=== PATIENT | male | born 1975 | race Caucasian/White ===

== ENCOUNTER → 2016-10-03 | Outpatient (CLI) | payer BC ==
[~2016-10-03] MED LIST: CARE PO; CLON0.5T4 PO; IOHEXOL 350 MG/ML 100ml INJECTION ONE; NORMAL SALINE 100 ML ONE; NS IV ONE; OMEP-29 PO; RANITIDINE IV ONE; SALINE FLUSH 10ml SYRINGE ONE; [UNRECOGNIZED DRUG - CODE] PO
[2016-10-03 11:30] VITALS: BP 160/98; PULSE 80; RESP 16; TEMP 98.4; O2SAT 99
[2016-10-03 11:48] LABS: BASOPHILS % (AUTO) 0.7 % (0-2); EOSINOPHILS # (AUTO) 0.2 T/MM3 (0-0.5); EOSINOPHILS % (AUTO) 6.5 % (0-4); HCT - HEMATOCRIT 43.5 % (41-53); HGB - HEMOGLOBIN 15.3 GM/DL (13.5-17.5); LYMPHOCYTES # (AUTO) 0.8 T/MM3 (1-4.8); LYMPHOCYTES % (AUTO) 29.1 % (23-45); MEAN CORPUSCULAR HGB 31.3 UUG (26-34); MEAN CORPUSCULAR HGB CONC(MCHC 35.2 GM/DL (31-37); MEAN PLATELET VOLUME 9.7 UM3 (9.4-12.4); MONOCYTES # (AUTO) 0.3 T/MM3 (0-0.8); MONOCYTES % (AUTO) 10.4 % (0-9.0); NEUTROPHILS #(AUTO)-ABSOLUTE 1.5 T/MM3 (1.8-7.7); NEUTROPHILS % (AUTO) 53.3 % (33-66); RED BLOOD COUNT 4.89 M/MM3 (4.50-5.90); WBC - WHITE BLOOD COUNT 2.8 T/MM3 (4.5-11.0)
[2016-10-03 12:25] LABS: ALBUMIN 4.9 G/DL (3.5-5.0); ALBUMIN/GLOBULIN RATIO 1.5 RATIO (1.1-2.2); ALKALINE PHOSPHATASE 67 U/L (38-126); ALT (SGPT) 43 U/L (21-72); ANION GAP 17 MEQ/L (5-15); AST (SGOT) 51 U/L (17-59); BUN/CREATININE RATIO 10 RATIO (6-26); CALCIUM 10.1 MG/DL (8.4-10.2); CHLORIDE 103 MEQ/L (98-107); CO2 - CARBON DIOXIDE 23 MEQ/L (22-30); CREATININE 0.7 MG/DL (0.8-1.5); GLOMERULAR FILTRATION RATE 124; GLUCOSE 87 MG/DL (75-110); LIPASE 73 U/L (23-300); POTASSIUM 4.6 MEQ/L (3.6-5); SODIUM 143 MEQ/L (134-144); TOTAL PROTEIN 8.2 G/DL (6.3-8.2)
--- NOTE | 2016-10-03 13:51 | DI ---
Indication: ITS.REASON: R10.13 EPIGASTRIC PAIN PROCEDURE: CTA ABDOMEN W/WO CONTRAST: Encounter: Initial Comparison: None Technique: CT angiography of the abdomen was performed before and after the administration of intravenous contrast. Coronal and sagittal MIP reconstructed images were created and reviewed along with three-dimensional surface shaded volume rendered imaging of the arterial vasculature which was created by the technologist on a dedicated workstation the direction of the interpreting radiologist. Automated Exposure Control and Iterative Reconstruction dose reducing techniques were utilized. Contrast: Omnipaque 350 100mL Findings: The lung bases are clear. Noncontrast images show no significant atherosclerotic plaque in the abdominal aorta or its major branches. Postcontrast images show normal arterial phase enhancement of the liver without focal mass or bile duct dilatation. The gallbladder appears normal. The spleen, pancreas and adrenal glands are within normal limits. The kidneys are normal. No abdominal adenopathy. No evidence of aortic aneurysm or dissection. There is evidence of a short segment 2 cm long dissection within the proximal SMA best seen on axial image #60. This does not cause occlusion and originates approximately 3 cm distal to the origin. There is a moderate stenosis of the celiac artery origin with poststenotic dilatation best seen on sagittal image #63. The ALEX origin appears normal. The visualized common, internal and sterile iliac arteries are normal in appearance. Bilateral renal arteries appear normal. There is an early bifurcation noted on the right. The visualized small and large bowel loops are within normal limits. Bone windows are normal. Impression: 1. 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 Vascular surgical or interventional radiology consultation is recommended. 2. Moderate stenosis of the celiac origin. Impression 1 was discussed with the referring physician at 1340 on October 03, 2016. .
== END ==
LOC: INF.THER 11:04
PROVIDERS: ATTEND Family Medicine
DX: I77.79 Dissection of other specified artery (principal); I77.4 Celiac artery compression syndrome; R10.13 Epigastric pain
CPT/HCPCS: 36415; 74175; 80053; 82150; 83690; 85025; 85379; J2780; J2930; J7050; Q9967